=== PATIENT | female | born 1990 | race Caucasian/White ===

== ENCOUNTER 2021-06-13 18:09 | Outpatient (CLI) | payer MEDICAID ==
[~2021-06-13] VITALS: Ht 167.6 cm; Wt 68.5 kg
[~2021-06-13 18:09] MED LIST: BIRTH CONTROL PILLS; FLEXERIL 1010 MG/TAB PO; IBU800 M1 PO; MOTRIN600 MG PO; NO HOME MEDICATIONS; NORCO 325 MG-7.1 TAB PO; PERCOCET 325 MG1 TA2 PO; PHENERGAN 25 TA25 MG PO; PHENERGAN25 MG RC; PRENATAL MVI; PRILOSEC 20MG20 MG PO
--- NOTE | 2021-06-13 18:15 | NUR ---
Pt here from office for NST per 's orders. Clean gown on. EFM and TOCO explained and applied. Pt denies contractions, leaking of fluids or vaginal bleeding. Pt reports fetus "moving like crazy and kicking." Plan of care explained. Assessment and VS taken. [place] and water given per request. 1850: called and updated on pt FHR strip. See physican notification. 1851: Pt off monitors and instructed to change. 1899: Discharge instructions given to pt and pt verbalizes her understanding. Denies questions. Pt ambulatory off unit and home.
[2021-06-13] MEDS ORDERED: ZOLOFT 25MG25 MG PO (18:31)
[2021-06-13 18:52] VITALS: BP 111/75; PULSE 62; TEMP 97.8
== END 2021-06-13 19:00 | disposition home or self-care (01) ==
LOC: LDRO 18:09 → LDR 18:15 → LDRO 19:00
DX: O36.8930 Maternal care for other specified fetal problems, third trimester, not applicable or unspecified (principal); Z3A.39 39 weeks gestation of pregnancy
CPT/HCPCS: OP

== ENCOUNTER 2021-06-19 16:13 | Inpatient (IN) | payer MEDICAID ==
[~2021-06-19] VITALS: Ht 167.6 cm; Wt 68.6 kg
[2021-06-19] VITALS (18 sets, daily range): BP systolic 102–117; BP diastolic 55–81; PULSE 59–85; TEMP 97.8–98.8
[~2021-06-19 16:13] MED LIST changes: +ZOLOFT 25MG25 MG PO
--- NOTE | 2021-06-19 16:20 | NUR ---
Admits to L&D for labor check. C/O contractions worsening in strenght over past couple of hours. Accompanied by spouse. Ambulatory to unit. Tearful on arrival.
--- NOTE | 2021-06-19 18:05 | NUR ---
Dr. Mcneal at bedside. SVE per provider /-2. Orders for admission. IV started in LF. Labs drawn.
--- NOTE | 2021-06-19 18:30 | NUR ---
Pt requesting epidural. Anesthesia notified. 1838 H.Katina ROOF FOREMAN into room for epidural placement see anesthesia record. 185 Test dose. 1900 to LF
[2021-06-19 19:07] LABS: BASO % 0.4 % (0.0-2.0); EOS % 0.1 % (0-4.0); GRAN # 7.8 (1.4-6.5); GRAN % 72.2 % (42.2-75.2); HEMOGLOBIN 12.5 g/dl (12.5-16.0); LYMPH # 2.1 (1.2-3.4); LYMPH % 19.9 % (20.0-51.0); MEAN CELL VOLUME 97 fl (80.0-100.0); MEAN CORPUSCULAR HEMOGLOBIN 33 pg (27.0-31.0); MEAN CORPUSCULAR HGB CONC 34 g/dl (33.0-37.0); MEAN PLATELET VOLUME 12.9 fl (7.4-10.4); MONO # 0.7 (0.1-0.6); MONO % 6.9 % (1.7-9.3); PLATELET COUNT 144 K/mm3 (130-400); RED BLOOD COUNT 3.81 M/mm3 (4.10-5.30); REDCELL DISTRIBUTION WIDTH-CV 13.4 % (11.5-14.5)
--- NOTE | 2021-06-19 20:10 | NUR ---
CARE ASSUMED BY THIS NURSE AT THIS TIME.
--- NOTE | 2021-06-19 22:00 | NUR ---
PT COMPLAINS OF MIGRAINE. DR. FERNÁNDEZ AT NURSE'S STATION, ORDERS 1 GM TYLENOL PO NOW.
--- NOTE | 2021-06-19 23:10 | NUR ---
2240-DR. FERNÁNDEZ IN ROOM TO EVALUATE, SVE OF COMPLETE. 2242- BESS DC'D, 200MLS URINE. 2245- PT BEGINS PUSHING WITH DR. FERNÁNDEZ. 2300- SPONTANEOUS VAGINAL DELIVERY OF VIABLE BABY GIRL. BABY TO MOTHER'S CHEST. CORD CLAMPED BY DR. FERNÁNDEZ, CUT BY FOB. BABY CARES ASSUMED BY LOUANN Nava RN. 2304- SPONTANEOUS DELIVERY OF INTACT PLACENTA, PITOCIN STARTED AT 333MLS/HR PER PROTOCOL. DR FERNÁNDEZ BEGINS REPAIR OF SECOND DEGREE LACERATION. 0- RECOVERY STARTED.
[2021-06-20] VITALS (9 sets, daily range): BP systolic 90–109; BP diastolic 51–72; PULSE 64–85; TEMP 97.3–98.5
--- NOTE | 2021-06-20 03:45 | NUR ---
0330- PT UNABLE TO LIFT LEFT LEG AT THIS TIME, REMAINS HEAVY FOLLOWING EPIDURAL PLACEMENT. STRAIGHT CATH PERFORMED, 900MLS URINE OUT. PERICARE PROVIDED. PERIPAD/ICEPACK AND MESH UNDERWEAR ON, PT TRANSFERRED TO WHEELCHAIR TO . TOLERATED WELL.
[2021-06-20] MEDS ORDERED: IBU600 MG PO (09:27)
--- NOTE | 2021-06-20 09:33 | NUR ---
Initial visit; Patient thanked Special Delivery Mail Carrier for offering congratulations and God's blessings for the of her son. Special Delivery Mail Carrier thanked mom for choosing [facility].
[2021-06-21 09:30] VITALS: BP 99/60; PULSE 60
--- NOTE | 2021-06-21 11:30 | NUR ---
Discharge instructions and follow up care reviewed with pt and at the bedside. Both verbalized an understanding, agreed with the plan and states no questions or concerns at this time.
== END 2021-06-21 12:15 | disposition home or self-care (01) | DRG 807 ==
LOC: LDRO 16:13 → LDR 16:20 → LDRO 18:11 → LDR 18:12 → OB 18:12
PROVIDERS: Obstetrics & Gynecology; ADMIT Student in an Organized Health Care Education/Training Program
PROC: 10E0XZZ Delivery of Products of Conception, External Approach (ICD-10-PCS; principal; 2021-06-19)
PROC: 0KQM0ZZ Repair Perineum Muscle, Open Approach (ICD-10-PCS; 2021-06-19)
DX: O99.02 Anemia complicating childbirth (principal); Z37.0 Single live birth; D64.9 Anemia, unspecified; O99.344 Other mental disorders complicating childbirth; F32.9 Major depressive disorder, single episode, unspecified; Z3A.40 40 weeks gestation of pregnancy; F41.9 Anxiety disorder, unspecified; O70.1 Second degree perineal laceration during delivery
CPT/HCPCS: J2405; J2590; J7120